=== PATIENT | female | born 1995 | race Caucasian/White ===

== ENCOUNTER 2018-01-13 08:56 | Emergency (ER) | payer BC ==
[2018-01-13 09:13] VITALS: BP 114/75
[2018-01-13] MEDS ORDERED: Ondansetron 4 MG/2 ML SDV IVPUSH ONE ×2 (09:22→10:50)
--- NOTE | 2018-01-13 09:25 | EDM.PDOC ---
ED HPI GENERAL MEDICAL PROBLEM - General Chief Complaint: Gastrointestinal Problem Stated Complaint: NAUSEA, 7 WKS PREG Time Seen by Provider: 01/13/18 09:22 Source of Information: Reports: Patient History Limitations: Reports: No Limitations - History of Present Illness INITIAL COMMENTS - FREE TEXT/NARRATIVE: Pt is nearly 7 weeks . She has not held anything down for the past 2-3 days. Sh has no abdomnal pain. She has had stools. Onset: Other (last 3 days. ) Duration: Day(s): Location: Reports: Abdomen, Other (pt is 7 weks . ) Associated Symptoms: Reports: Nausea/Vomiting - Related Data Allergies Allergy/AdvReac Type Severity Reaction Status Date / Time latex Allergy Swelling Verified 08/02/15 19:13 Penicillins Allergy Itching Verified 08/02/15 19:13 Past Medical History - Past Health History Medical/Surgical History: Denies Medical/Surgical History Other HEENT History: possiable TMJ Social & Family History - Tobacco Use Smoking Status *Q: Never Smoker - Caffeine Use Caffeine Use: Reports: Tea - Recreational Drug Use Recreational Drug Use: No ED ROS GENERAL - Review of Systems Review Of Systems: See Below Constitutional: Reports: Weakness, Other (pt has been lite headed) HEENT: Reports: No Symptoms Respiratory: Reports: No Symptoms Cardiovascular: Reports: No Symptoms Endocrine: Reports: No Symptoms GI/Abdominal: Reports: Nausea, Vomiting : Reports: No Symptoms Musculoskeletal: Reports: No Symptoms Skin: Reports: No Symptoms ED EXAM, GI/ABD - Physical Exam Exam: See Below Text/Narrative:: pt arrived with a history of 2-3 days of vomiting. She is nearly 7 weeks . Exam Limited By: No Limitations General Appearance: Alert, Mild Distress Ears: Normal TMs Nose: Normal Inspection Throat/Mouth: Normal Inspection Head: Atraumatic Neck: Normal Inspection Respiratory/Chest: No Respiratory Distress Cardiovascular: Regular Rate, Rhythm GI/Abdominal Exam: Soft, Non-Tender (Female) Exam: Deferred Rectal (Female) Exam: Deferred Back Exam: Normal Inspection Extremities: Normal Inspection Neurological: Alert, Oriented, Normal Cognition Psychiatric: Normal Affect Course - Vital Signs Last Recorded V/S: Last Vital Signs Temp 36.3 C 01/13/18 09:10 Pulse 93 01/13/18 09:10 Resp 14 01/13/18 09:10 BP 114/75 01/13/18 09:10 Pulse Ox 100 01/13/18 09:10 - Orders/Labs/Meds Orders: Active Orders 24 hr Category Date Time Status UA W/MICROSCOPIC [URIN] Urgent Lab 01/13/18 09:22 Ordered Sodium Chloride 0.9% [Normal Saline] 1,000 ml Med 01/13/18 09:30 Active IV ASDIRECTED Sodium Chloride 0.9% [Normal Saline] 1,000 ml Med 01/13/18 09:30 Active IV ASDIRECTED Medication Orders Sodium Chloride (Normal Saline) 1,000 mls @ 999 mls/hr IV ASDIRECTED HOLLI Last Admin: 01/13/18 09:35 Dose: 999 mls/hr Sodium Chloride (Normal Saline) 1,000 mls @ 999 mls/hr IV ASDIRECTED HOLLI Last Admin: 01/13/18 10:33 Dose: 999 mls/hr Labs: Laboratory Tests 01/13/18 01/13/18 Range/Units 09:34 09:34 WBC 7.0 (4.5-11.0) K/uL RBC 4.44 (3.30-5.50) M/uL Hgb 14.0 (12.0-15.0) g/dL Hct 41.8 (36.0-48.0) % MCV 94 (80-98) fL MCH 32 H (27-31) pg MCHC 34 (32-36) % Plt Count 332 (150-400) K/uL Neut % (Auto) 73 H (36-66) % Lymph % (Auto) 16 L (24-44) % [place] % (Auto) 10 H (2-6) % Eos % (Auto) 1 L (2-4) % Baso % (Auto) 1 (0-1) % Sodium 137 L (140-148) mmol/L Potassium 4.1 (3.6-5.2) mmol/L Chloride 101 (100-108) mmol/L Carbon Dioxide 24 (21-32) mmol/L Anion Gap 16.1 H (5.0-14.0) mmol/L BUN 10 (7-18) mg/dL Creatinine 0.7 (0.6-1.0) mg/dL Est Cr Clr Drug Dosing 104.28 mL/min Estimated GFR (MDRD) > 60 (>60) Glucose 88 (74-106) mg/dL Calcium 9.4 (8.5-10.1) mg/dL Total Bilirubin 0.6 (0.2-1.0) mg/dL AST 19 (15-37) U/L ALT 21 (12-78) U/L Alkaline Phosphatase 55 (46-116) U/L Total Protein 8.2 (6.4-8.2) g/dL Albumin 4.6 (3.4-5.0) g/dL Globulin 3.6 H (2.3-3.5) g/dL Albumin/Globulin Ratio 1.3 (1.2-2.2) Meds: Medications Generic Name Dose Route Start Last Admin Trade Name Freq PRN Reason Stop Dose Admin Sodium Chloride 1,000 mls @ 999 mls/hr 01/13/18 09:30 01/13/18 09:35 Normal Saline IV 999 mls/hr ASDIRECTED HOLLI Administration Sodium Chloride 1,000 mls @ 999 mls/hr 01/13/18 09:30 01/13/18 10:33 Normal Saline IV 999 mls/hr ASDIRECTED HOLIL Administration Discontinued Medications Generic Name Dose Route Start Last Admin Trade Name Freq PRN Reason Stop Dose Admin Ondansetron HCl 4 mg 01/13/18 09:22 01/13/18 09:35 Zofran IVPUSH 01/13/18 09:23 4 mg ONETIME ONE Administration Ondansetron HCl 4 mg 01/13/18 10:50 01/13/18 10:56 Zofran IVPUSH 01/13/18 10:51 4 mg ONETIME ONE Administration - Re-Assessments/Exams Free Text/Narrative Re-Assessment/Exam: 01/13/18 10:05 labs are showing dehydration. No alarming findings. 01/13/18 11:44 pt is feeling better after hydration and zoforan. Departure - Departure Time of Disposition: 11:45 Disposition: Home, Self-Care 01 Condition: Fair Clinical Impression: First trimester , Dehydration - Discharge Information Referrals: Evelina House PA [Primary Care Provider] - Forms: ED Department Discharge Care Plan Goals: get appt with Tata Serrato, keep appt for US, zoforan 4 mg subling as needed for nausea. - My Orders Last 24 Hours: My Active Orders 01/13/18 09:22 UA W/MICROSCOPIC [URIN] Urgent 01/13/18 09:30 Sodium Chloride 0.9% [Normal Saline] 1,000 ml IV ASDIRECTED Sodium Chloride 0.9% [Normal Saline] 1,000 ml IV ASDIRECTED - Assessment/Plan Last 24 Hours: My Active Orders 01/13/18 09:22 UA W/MICROSCOPIC [URIN] Urgent 01/13/18 09:30 Sodium Chloride 0.9% [Normal Saline] 1,000 ml IV ASDIRECTED Sodium Chloride 0.9% [Normal Saline] 1,000 ml IV ASDIRECTED
[2018-01-13] MEDS ORDERED: Sodium Chloride 0.9% 1,000 ML IV SCH ×2 (09:30)
== END 2018-01-13 11:50 | disposition home or self-care (01) ==
LOC: JP.ED 08:56
DX: O99.281 Endocrine, nutritional and metabolic diseases complicating pregnancy, first trimester (principal); E86.0 Dehydration; Z3A.01 Less than 8 weeks gestation of pregnancy; Z91.040 Latex allergy status; Z88.0 Allergy status to penicillin
CPT/HCPCS: 36415; 80053; 81001; 85025; 96361; 96374; 96376; 99284; J2405; J7040

== ENCOUNTER 2018-03-26 08:55 | Emergency (ER) | payer BC, MEDICAID ==
[2018-03-26 09:22] VITALS: BP 111/69
[2018-03-26] MEDS ORDERED: Prochlorperazine 10 MG/2 ML SDV IVPUSH ONE (09:58)
[2018-03-26] MEDS ORDERED: Sodium Chloride 0.9% 10 ML Syringe FLUSH PRN (09:58)
[2018-03-26] MEDS ORDERED: Sodium Chloride 0.9% 1,000 ML IV SCH (10:00)
--- NOTE | 2018-03-26 10:01 | EDM.PDOC ---
ED HPI GENERAL MEDICAL PROBLEM - General Chief Complaint: General Stated Complaint: 17WKS FEELING DIZZY; OFF Time Seen by Provider: 03/26/18 09:48 Source of Information: Reports: Patient, Family, RN Notes Reviewed History Limitations: Reports: No Limitations - History of Present Illness INITIAL COMMENTS - FREE TEXT/NARRATIVE: 22-year-old female presents to the emergency department today with complaint of "I just don't feel right" she is 17 weeks intrauterine 1 para 0 has had difficulties with dizziness and nausea awoke this morning feeling like she been drinking all night long. 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 & Family History - Tobacco Use Smoking Status *Q: Never Smoker - Caffeine Use Caffeine Use: Reports: Tea - Recreational Drug Use Recreational Drug Use: No ED ROS GENERAL - Review of Systems Review Of Systems: See Below Constitutional: Reports: No Symptoms Respiratory: Reports: No Symptoms Cardiovascular: Reports: Lightheadedness : Reports: No Symptoms, Other (Positive for movement, no vaginal bleeding no discharge or fluid) ED EXAM, GENERAL - Physical Exam Exam: See Below Free Text/Narrative:: Abdomen is soft and nontender uterus ultrasound exam SHOWS HEART TONES IN THE 160S POSITIVE MOVEMENT INTRAUTERINE Exam Limited By: No Limitations General Appearance: Alert, WD/WN, No Apparent Distress Respiratory/Chest: No Respiratory Distress Course - Vital Signs Last Recorded V/S: Last Vital Signs Temp 97.0 F 03/26/18 09:37 Pulse 77 03/26/18 09:37 Resp 16 03/26/18 09:37 BP 111/69 03/26/18 09:37 Pulse Ox 100 03/26/18 09:37 - Orders/Labs/Meds Orders: Active Orders 24 hr Category Date Time Status Peripheral IV Care [RC] . DIRECTED Care 03/26/18 09:58 Active UA W/MICROSCOPIC [URIN] Urgent Lab 03/26/18 10:04 Ordered Sodium Chloride 0.9% [Normal Saline] 1,000 ml Med 03/26/18 10:00 Active IV ASDIRECTED Sodium Chloride 0.9% [Saline Flush] Med 03/26/18 09:58 Active 10 ml FLUSH ASDIRECTED PRN Peripheral IV Insertion Adult [OM.PC] Urgent Oth 03/26/18 09:56 Ordered Medication Orders Sodium Chloride (Normal Saline) 1,000 mls @ 500 mls/hr IV ASDIRECTED HOLLI Last Admin: 03/26/18 10:29 Dose: 500 mls/hr Sodium Chloride (Saline Flush) 10 ml FLUSH ASDIRECTED PRN PRN Reason: Keep Vein Open Labs: Laboratory Tests 03/26/18 Range/Units 10:04 Urine Color Yellow Urine Appearance Clear Urine pH 8.0 (4.5-8.0) Ur Specific [place] 1.010 (1.008-1.030) Urine Protein Negative (NEGATIVE) mg/dL Urine Glucose (UA) Normal (NEGATIVE) mg/dL Urine Ketones Negative (NEGATIVE) mg/dL Urine Occult Blood Negative (NEGATIVE) Urine Nitrite Negative (NEGATIVE) Urine Bilirubin Negative (NEGATIVE) Urine Urobilinogen Normal (NORMAL) mg/dL Ur Leukocyte Esterase Negative (NEGATIVE) Urine RBC Not seen (0-5) Urine WBC Not seen (0-5) Ur Epithelial Cells Not seen Amorphous Sediment Rare Urine Bacteria Not seen Urine Mucus Not seen Meds: Medications Generic Name Dose Route Start Last Admin Trade Name Freq PRN Reason Stop Dose Admin Sodium Chloride 1,000 mls @ 500 mls/hr 03/26/18 10:00 03/26/18 10:29 Normal Saline IV 500 mls/hr ASDIRECTED HOLLI Administration Sodium Chloride 10 ml 03/26/18 09:58 Saline Flush FLUSH ASDIRECTED PRN Keep Vein Open Discontinued Medications Generic Name Dose Route Start Last Admin Trade Name Freq PRN Reason Stop Dose Admin Prochlorperazine Edisylate 5 mg 03/26/18 09:58 03/26/18 10:30 Compazine IVPUSH 03/26/18 09:59 5 mg ONETIME ONE Administration Departure - Departure Time of Disposition: 11:57 Disposition: Home, Self-Care 01 Condition: Good Clinical Impression: Dehydration, First trimester - Discharge Information Referrals: Kera Carballo RN [Primary Care Provider] - Forms: ED Department Discharge Additional Instructions: Continue to push fluids recommend follow-up with your primary OB provider in 3- 5 days, call return emergency department worsening of symptoms - My Orders Last 24 Hours: My Active Orders 03/26/18 09:56 Peripheral IV Insertion Adult [OM.PC] Urgent 03/26/18 09:58 Peripheral IV Care [RC] . DIRECTED Sodium Chloride 0.9% [Saline Flush] 10 ml FLUSH ASDIRECTED PRN 03/26/18 10:00 Sodium Chloride 0.9% [Normal Saline] 1,000 ml IV ASDIRECTED 03/26/18 10:04 UA W/MICROSCOPIC [URIN] Urgent - Assessment/Plan Last 24 Hours: My Active Orders 03/26/18 09:56 Peripheral IV Insertion Adult [OM.PC] Urgent 03/26/18 09:58 Peripheral IV Care [RC] . DIRECTED Sodium Chloride 0.9% [Saline Flush] 10 ml FLUSH ASDIRECTED PRN 03/26/18 10:00 Sodium Chloride 0.9% [Normal Saline] 1,000 ml IV ASDIRECTED 03/26/18 10:04 UA W/MICROSCOPIC [URIN] Urgent Plan: Assessment Acuity = acute Site and laterality = nausea dehydration, again the patient currently at 17 weeks intrauterine gestation Etiology = poor fluid intake Manifestations = none Location of injury = Home Lab values = urinalysis unremarkable Plan She did feel better with 1 L fluid and 5 mg Compazine plan discharge home continue push fluids follow-up primary obstetrical care in 3-5 days for reevaluation This note was dictated using [employer] voice recognition software please call with any questions on syntax or grammar.
== END 2018-03-26 12:32 | disposition home or self-care (01) ==
LOC: JP.ED 08:55
DX: O99.282 Endocrine, nutritional and metabolic diseases complicating pregnancy, second trimester (principal); E86.0 Dehydration; Z3A.17 17 weeks gestation of pregnancy; Z91.040 Latex allergy status; Z88.0 Allergy status to penicillin; Z79.899 Other long term (current) drug therapy
CPT/HCPCS: 81001; 96361; 96374; 99284; J0780; J7030